=== PATIENT | male | born 2000 | race Caucasian/White ===

== ENCOUNTER 2020-07-12 21:49 | Observation (INO) | payer OTHER ==
[~2020-07-12 21:49] MED LIST: Iopamidol-370 76% 500 ML 1 ML ONE
[2020-07-12] MEDS ORDERED: Ondansetron PF 4 MG/2 ML Vial ONE (21:52)
[2020-07-12] MEDS ORDERED: Fentanyl 100 MCG/2 ML VIAL ONE (21:52)
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
[2020-07-12] MEDS ORDERED: Morphine 4 MG/ML VIAL ONE (22:52)
[2020-07-12 23:02] LABS: #Lymphocytes 1.7 thou/uL (1.20-3.40); #Monocytes 0.4 thou/uL (0.11-0.59); #Neutrophils 8.2 thou/uL (1.40-6.50); %Basophils 0.2 % (0.0-1.0); %Eosinophils 0.4 % (0.0-10.0); %Lymphocytes 16.1 % (21.0-51.0); %Monocytes 4.2 % (0.0-10.0); %Neutrophils 79.1 % (42.0-75.0); Hemoglobin 16.4 g/dL (14.0-18.0); Mean Corpuscular HGB CONC 35.1 g/dL (32.0-36.0); Mean Corpuscular Hemoglobin 30.7 pg (27.0-31.0); Mean Corpuscular Volume 87.6 fL (78.0-98.0); Mean Platelet Volume 7.6 fL (7.4-10.4); Platelet Count 123 thou/uL (130-400); Red Blood Cell (RBC) Count 5.34 mill/uL (4.70-6.10); White Blood Cell (WBC) Count 10.3 thou/uL (4.8-10.8)
[2020-07-12 23:21] LABS: Acetaminophen Less than 6.0 mcg/mL (10.0-30.0); Alcohol Less than 10 mg/dL (Less than 10); Salicylate Less than 8.0 mg/dL (15.0-30.0)
[2020-07-12 23:24] LABS: ALT (SGPT) 22 U/L (8-55); AST (SGOT) 40 U/L (5-34); Albumin 4.1 g/dL (3.5-5.0); Alkaline Phosphatase 70 U/L (40-110); Anion Gap 14 mmol/L (10-20); BUN (Urea Nitrogen) 9 mg/dL (8.9-20.6); Bilirubin, Total 0.9 mg/dL (0.2-1.2); Calc. Creatinine Clearance 0 mL/min (70-130); Calcium 8.4 mg/dL (7.8-10.44); Carbon Dioxide 22 mmol/L (22-29); Chloride 104 mmol/L (98-107); Estimated GFR-MDRD Greater than 90; Glucose 100 mg/dL (70-105); Potassium 3.8 mmol/L (3.5-5.1); Protein, Total 7.1 g/dL (6.0-8.3); Sodium 136 mmol/L (136-145)
[2020-07-12 23:35] LABS: Amphetamine Not Detected (NotDetected); Barbiturates Screen Not Detected (NotDetected); Benzodiazepine Screen Not Detected (NotDetected); Cocaine Metabolite Screen Not Detected (NotDetected); Medtox Control Line Valid? VALID (VALID); Medtox Reader # READER 1; Methadone Not Detected (NotDetected); Methamphetamine Not Detected (NotDetected); Opiate Screen Detected (NotDetected); Oxycodone Screen Not Detected (NotDetected); Phencyclidine (PCP) Not Detected (NotDetected); THC/Cannabinoid Screen Detected (NotDetected); Tricyclic Screen Not Detected (NotDetected)
[2020-07-13 06:20] VITALS: BMI 16.9
[2020-07-13] MEDS ORDERED: Ondansetron ODT 4 MG TAB PO PRN (06:27)
[2020-07-13] MEDS ORDERED: Dextrose 50% Abboject 50 ML SYRINGE SLOW IVP PRN (06:27)
[2020-07-13] MEDS ORDERED: Dextrose 5% in Water 1,000 ML IV PRN (06:27)
[2020-07-13] MEDS ORDERED: traMADol HCl 50 MG TAB PO PRN ×2 (06:32)
[2020-07-13] MEDS ORDERED: FLU VACC QS2020-21(6MOS UP)/PF 60 MCG/0.5 ML SYRINGE IM ONE (07:15)
[2020-07-13] MEDS ORDERED: Nicotine 14 MG PATCH TD SCH (08:00)
[2020-07-13] MEDS: Acetaminophen 500 MG TAB PO SCH ×2 (10:34→12:06)
--- NOTE | 2020-07-13 10:42 | RAD ---
PORTABLE CHEST: HISTORY: Pulmonary contusion. COMPARISON: 07/12/2020. Also compared to the CT of 07/12/2020 which showed subtle parenchymal contusion in the lef t mid lung. FINDINGS: Lungs are well aerated. No pneumothorax. Some hazy density in the left mid lung is seen which would correspond to the hazy contusion seen on CT. There is no consolidation or focal infiltrate. The left clavicle fracture is again noted. IMPRESSION: No acute interval change. Hazy contusion is better appreciated on CT. POS: AGW
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
[2020-07-13] MEDS ORDERED: Acetaminophen 650 MG/20.3 ML UDCUP PO SCH (12:00)
[2020-07-13 15:03] VITALS: TEMP 98.3
[2020-07-13 16:34] VITALS: BP 106/60
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
== END 2020-07-13 15:32 | disposition home or self-care (01) ==
LOC: ERS 21:49 → 2SE 07-13 00:13
PROVIDERS: ADMIT Surgery; ATTEND Surgery
DX: S42.002A Fracture of unspecified part of left clavicle, initial encounter for closed fracture (principal); S27.322A Contusion of lung, bilateral, initial encounter; F17.210 Nicotine dependence, cigarettes, uncomplicated; M41.9 Scoliosis, unspecified; Z88.5 Allergy status to narcotic agent; Z88.6 Allergy status to analgesic agent; V89.2XXA Person injured in unspecified motor-vehicle accident, traffic, initial encounter
CPT/HCPCS: 36415; 70450; 71045; 71260; 72125; 74177; 80053; 80306; 80307; 84484; 85025; 93005; 96374; 96375; G0378; G0390; J2270; J2405; J3010; Q9967